=== PATIENT | female | born 1975 | race Caucasian/White ===

== ENCOUNTER 2020-01-13 22:53 | Inpatient (IN) | payer BC, OTHER ==
[~2020-01-13] VITALS: Ht 160 cm; Wt 129.0 kg
[2020-01-13] MEDS ORDERED: ondansetron/PF 4mg/2ml inj IV ONE (23:25)
[2020-01-13] MEDS ORDERED: morphine 10mg/ml inj. IV ONE (23:25)
[2020-01-13] MEDS ORDERED: iohexol 300mg/ml 100ml inj. ONE (23:32)
[2020-01-13 23:54] LABS: BASOPHILS # (AUTO) 0.1 X10'3 (0-0.2); BASOPHILS % (AUTO) 0.9 % (0-1); EOSINOPHILS # (AUTO) 0.2 X10'3 (0-0.9); EOSINOPHILS % (AUTO) 1.3 % (0-6); HEMATOCRIT 30.1 % (35.0-45.0); HEMOGLOBIN 9.6 g/dl (12.0-16.0); LYMPHOCYTES # (AUTO) 2.4 X10'3 (1.1-4.8); LYMPHOCYTES % (AUTO) 17.5 % (21-51); MEAN CORPUSCULAR HEMOGLOBIN 24.3 PG (27.0-31.0); MEAN CORPUSCULAR HGB CONC 31.7 g/dL (33.0-36.5); MEAN CORPUSCULAR VOLUME 76.4 FL (78-98); MEAN PLATELET VOLUME 8.3 FL (7.4-10.4); MONOCYTES # (AUTO) 0.5 X10'3 (0-0.9); MONOCYTES % (AUTO) 3.6 % (2-12); NEUTROPHILS # (AUTO) 10.6 X10'3 (1.8-7.7); NEUTROPHILS % (AUTO) 76.7 % (42-75); PLATELET COUNT 401 X10'3 (140-440); RED BLOOD COUNT 3.94 X10'6 (4.20-5.60); RED CELL DISTRIBUTION WIDTH 16.1 % (11.5-14.5); WHITE BLOOD COUNT 13.9 X10'3 (4.5-11.0)
[2020-01-14] VITALS (11 sets, daily range): BP systolic 106–137; BP diastolic 40–70
[2020-01-14 00:13] LABS: HCG SERUM QL NEGATIVE
[2020-01-14 00:57] LABS: CLARITY,URINE CLEAR (Clear); COLOR,URINE YELLOW (Yellow); GLUCOSE, URINE NEGATIVE (Neg); KETONES,URINE NEGATIVE (Neg); LEUKOCYTE ESTERASE ,URINE SMALL (Neg); NITRITES, URINE NEGATIVE (Neg); OCCULT BLOOD,URINE NEGATIVE (Neg); PROTEIN,URINE NEGATIVE (Neg); UROBILINOGEN,URINE 0.2 E.U/dL (0.2-1.0)
[2020-01-14 01:00] LABS: ANION GAP 8 (8-16); BILIRUBIN,TOTAL 0.2 MG/DL (0.1-1.0); BLOOD UREA NITROGEN 16 MG/DL (7-18); BUN/CREATININE RATIO 16.8 (6.6-38.0); CALCIUM 8.9 MG/DL (8.5-10.1); CHLORIDE 103 MMOL/L (99-107); CREATININE 0.95 MG/DL (0.40-0.90); GLUCOSE 127 MG/DL (70-104); POTASSIUM 3.9 MMOL/L (3.5-5.1); SODIUM 141 MMOL/L (135-145); TOTAL CARBON DIOXIDE 30.1 MMOL/L (24-32); TOTAL PROTEIN 7.5 G/DL (6.4-8.2); TROPONIN I < 0.04 NG/ML (0.0-0.05); eGFR 63 ML/MIN
[2020-01-14 01:01] LABS: ALANINE AMINOTRANSFERASE 16 U/L (12-78); ALBUMIN/GLOBULIN RATIO 0.7 (1.1-1.5); ALKALINE PHOSPHATASE 94 IU/L (46-116); ASPARTATE AMINO TRANSFERASE 10 U/L (10-37); LIPASE 84 U/L (73-393)
[2020-01-14 01:01] LABS: UA COLLECTION TYPE CLN CATCH MIDSTREAM
[2020-01-14 01:02] LABS: BACTERIA,URINE FEW /HPF (Neg); RBC,URINE NONE SEEN /HPF (0-2); SQUAMOUS EPITHELIAL CELL,UR FEW /LPF (FEW); WBC CLUMPS,URINE FEW /HPF (NEGATIVE)
[2020-01-14] MEDS ORDERED: metroNIDAZOLE-Flagyl 500mg/NS 100 ML IV STA (01:26)
[2020-01-14] MEDS ORDERED: CefTRIAXone/D5W-Rocephin 1gm 50 ML IV ONE (01:30)
[2020-01-14] MEDS ORDERED: GABA600T13 PO (01:56)
[2020-01-14] MEDS ORDERED: CYCL-1 PO (01:56)
[2020-01-14] MEDS ORDERED: TRAM50TA2 PO (01:56)
[2020-01-14] MEDS ORDERED: DULO60CA45 PO (01:57)
[2020-01-14] MEDS ORDERED: PANT20TA2 PO (01:57)
--- NOTE | 2020-01-14 02:03 | NUR ---
RELIEIVING PRIMARY RN- WILL MONITOR PT STATUS.
--- NOTE | 2020-01-14 02:09 | NUR ---
PER DR. MEADOWS, NO ORDERS FOR CULTURES WILL BE PLACED- OK TO ADMINISTER ANTIBIOTICS
[2020-01-14] MEDS ORDERED: acetaminophen 325mg tablet PO PRN (02:20)
[2020-01-14] MEDS ORDERED: ondansetron/PF 4mg/2ml inj IV PRN ×2 (02:20→17:05)
[2020-01-14] MEDS: morphine 2 MG/ML inj. syringe IV PRN ×3 (02:52→13:53)
[2020-01-14] MEDS: normal saline 1000ml 1,000 ML IV SCH ×3 (02:53→23:44)
--- NOTE | 2020-01-14 03:36 | NUR ---
Patient in room ED 13. I have received report from PHAN Todd and had the opportunity to ask questions and assume patient care.
--- NOTE | 2020-01-14 06:30 | NUR ---
Patient in room ORTHO 4024. I have received report from Rimma De León RN and had the opportunity to ask questions and assume patient care.
--- NOTE | 2020-01-14 06:40 | NUR ---
Problems reprioritized. Patient report given, questions answered & plan of care reviewed with PHAN Garcia.
[2020-01-14] MEDS: pantoprazole 40mg Tablet.DR PO SCH (07:29)
[2020-01-14] MEDS: CefTRIAXone/D5W-Rocephin 1gm 50 ML IV SCH (07:29)
[2020-01-14] MEDS: duloxetine 30mg CAPSULE.DR PO SCH (07:29)
[2020-01-14] MEDS: gabapentin 300mg capsule PO SCH ×3 (07:29→20:57)
[2020-01-14] MEDS ORDERED: ringers solution, lacted 1,000 ML IV ONE (16:00)
--- NOTE | 2020-01-14 16:05 | NUR ---
Report given to OR/CALENDER INSPECTORMariah CHISHOLM
[2020-01-14] MEDS ORDERED: BUPIVAcaine/PF 2.5 mg/ml (0.25%) 30ml vial ONE (16:37)
[2020-01-14] MEDS ORDERED: famotidine/PF 10 mg/ml inj IV ONE ×2 (17:04→17:06)
[2020-01-14] MEDS ORDERED: hydrALAZINE 20mg/ml inj. IV PRN (17:05)
[2020-01-14] MEDS ORDERED: HYDROmorphone inj. 0.5 MG/0.5 ML DISP.SYRIN IV PRN (17:05)
[2020-01-14] MEDS ORDERED: proCHLORperazine 10 MG/2 ml inj IV PRN (17:05)
[2020-01-14] MEDS ORDERED: meperidine/PF 25mg/ml syringe IV PRN (17:05)
[2020-01-14] MEDS ORDERED: acetaminophen 1,000mg/100ml IV 100 ML IV PRN (17:05)
[2020-01-14] MEDS ORDERED: morphine 2 MG/ML inj. syringe IV PRN (17:05)
[2020-01-14] MEDS ORDERED: ringers solution, lacted 1,000 ML IV SCH (17:05)
[2020-01-14] MEDS ORDERED: labetalol 20mg/4ml (5mg/ml) syringe IV PRN (17:05)
[2020-01-14] MEDS ORDERED: fentaNYL /PF 50mcg/ml 5ml ampule ONE (17:06)
[2020-01-14] MEDS ORDERED: LIDOcaine 2% 5ml jelly ONE (17:08)
[2020-01-14] MEDS ORDERED: ondansetron/PF 4mg/2ml inj ONE (17:20)
[2020-01-14] MEDS ORDERED: LIDOcaine 2% (20mg/ml) 5ml vial ONE (17:20)
[2020-01-14] MEDS ORDERED: dexamethasone sod phosphate 4mg/ml inj. ONE (17:20)
[2020-01-14] MEDS ORDERED: rocuronium 10mg/ml inj IV ONE (17:20)
[2020-01-14] MEDS ORDERED: ceFOXitin 1000 MG inj ONE ×2 (17:20)
[2020-01-14] MEDS ORDERED: propofol inj 20 ML IV ONE (17:20)
[2020-01-14] MEDS ORDERED: neostigmine methylsulfate 1 MG/ML 10ml vial ONE (18:06)
[2020-01-14] MEDS ORDERED: glycopyrrolate 0.2mg/ml inj ONE (18:06)
[2020-01-14] MEDS ORDERED: morphine 4 MG/ML inj SYRINge ONE (18:14)
--- NOTE | 2020-01-14 18:20 | NUR ---
Problems reprioritized. Patient report given, questions answered & plan of care reviewed with PHAN Lr.
--- NOTE | 2020-01-14 18:29 | NUR ---
Received from OR via , accompanied by Anesthesiologist DR FONSECA and report given by Anesthesiolgist. PT IS AWAKE, MOVING EXT X 4, 10/10 ABD PAIN, DEMEROL GIVEN, VSS, PIV RIGHT WRIST 20G PATENT WITH LR 100ML/HR, SCD'S, WOUND VAC TURNED ON, 4 BA'S ON ABD CD.
[2020-01-14] MEDS: HYDROmorphone inj. 0.5 MG/0.5 ML DISP.SYRIN IV PRN ×2 (18:38→18:48)
[2020-01-14] MEDS: morphine 4 MG/ML inj SYRINge IV PRN ×2 (18:59→19:28)
--- NOTE | 2020-01-14 19:16 | NUR ---
Report called to receiving nurse. Transferred via bed Belongings . Special Issues communicated to receiving nurse artur rizzo. PAIN IS FINALLY MANAGED WITH IV PAIN MEDS AND A SINGLE DOSE OF COMPAZINE, BA'S ON ABD CD, SCD'S, PIV PATENT. PT MERCY FLUIDS. PT MEETS DISCHARGE CRITERIA.
[2020-01-14] MEDS ORDERED: cyclobenzaprine 10mg tablet PO SCH (21:00)
--- NOTE | 2020-01-14 21:46 | NUR ---
I called the wound vac placement into [facility] that was placed on patient since we had to taker her home wound vac off her per policy, I was given a reference number of [id number].
[2020-01-15] VITALS: BP 119/58
[2020-01-15] MEDS: morphine 2 MG/ML inj. syringe IV PRN ×2 (01:18→08:42)
[2020-01-15 05:46] LABS: BASOPHILS % (AUTO) 0.4 % (0-1); EOSINOPHILS # (AUTO) 0.1 X10'3 (0-0.9); EOSINOPHILS % (AUTO) 1.4 % (0-6); HEMATOCRIT 29.1 % (35.0-45.0); HEMOGLOBIN 9.1 g/dl (12.0-16.0); LYMPHOCYTES # (AUTO) 1.6 X10'3 (1.1-4.8); LYMPHOCYTES % (AUTO) 15.8 % (21-51); MEAN CORPUSCULAR HEMOGLOBIN 24.2 PG (27.0-31.0); MEAN CORPUSCULAR HGB CONC 31.3 g/dL (33.0-36.5); MEAN CORPUSCULAR VOLUME 77.3 FL (78-98); MEAN PLATELET VOLUME 8.7 FL (7.4-10.4); MONOCYTES # (AUTO) 0.4 X10'3 (0-0.9); MONOCYTES % (AUTO) 4.3 % (2-12); NEUTROPHILS # (AUTO) 7.7 X10'3 (1.8-7.7); NEUTROPHILS % (AUTO) 78.1 % (42-75); PLATELET COUNT 371 X10'3 (140-440); RED BLOOD COUNT 3.76 X10'6 (4.20-5.60); RED CELL DISTRIBUTION WIDTH 16.2 % (11.5-14.5); WHITE BLOOD COUNT 9.8 X10'3 (4.5-11.0)
--- NOTE | 2020-01-15 06:20 | NUR ---
Patient in room ORTHO 4024. I have received report from KARON CHISHOLM and had the opportunity to ask questions and assume patient care.
--- NOTE | 2020-01-15 06:32 | NUR ---
Problems reprioritized. Patient report given, questions answered & plan of care reviewed with Ruth CHISHOLM. Addendum: 01/15/20 at 0632 by Adeline Russo RN Amended: Links added.
[2020-01-15 06:37] LABS: CHLORIDE 105 MMOL/L (99-107); POTASSIUM 3.8 MMOL/L (3.5-5.1); SODIUM 142 MMOL/L (135-145)
[2020-01-15 07:22] LABS: ALANINE AMINOTRANSFERASE 26 U/L (12-78); ALBUMIN 2.9 G/DL (3.4-5.0); ALBUMIN/GLOBULIN RATIO 0.7 (1.1-1.5); ALKALINE PHOSPHATASE 81 IU/L (46-116); ANION GAP 10 (8-16); ASPARTATE AMINO TRANSFERASE 32 U/L (10-37); BILIRUBIN,TOTAL 0.3 MG/DL (0.1-1.0); BLOOD UREA NITROGEN 10 MG/DL (7-18); BUN/CREATININE RATIO 11.6 (6.6-38.0); CALCIUM 8.2 MG/DL (8.5-10.1); CREATININE 0.86 MG/DL (0.40-0.90); GLUCOSE 96 MG/DL (70-104); TOTAL CARBON DIOXIDE 27.4 MMOL/L (24-32); TOTAL PROTEIN 7.1 G/DL (6.4-8.2); eGFR 71 ML/MIN
[2020-01-15] MEDS: pantoprazole 40mg Tablet.DR PO SCH (08:23)
[2020-01-15] MEDS: duloxetine 30mg CAPSULE.DR PO SCH (08:23)
[2020-01-15] MEDS: gabapentin 300mg capsule PO SCH ×2 (08:24→14:42)
[2020-01-15] MEDS: CefTRIAXone/D5W-Rocephin 1gm 50 ML IV SCH (08:28)
[2020-01-15] MEDS: normal saline 1000ml 1,000 ML IV SCH (08:32)
--- NOTE | 2020-01-15 10:14 | NUR ---
PAGED TO ROM TO ASK FOR A DIET ORDER FOR THIS PT. SHE DOES NOT HAVE ONE.
[2020-01-15 11:09] VITALS: BP 113/54
--- NOTE | 2020-01-15 11:57 | NUR ---
PAGED DR CUETO AGAIN. SHE HAS NOT RESPONDED TO MY MESSAGE REGARDING THIS PT.
--- NOTE | 2020-01-15 12:00 | NUR ---
DC'D SCD'S PT IS AMBULATING WELL
[2020-01-15] MEDS ORDERED: traMADol 50MG tablet PO PRN (13:00)
[2020-01-15] MEDS ORDERED: lactobacillus rhamnosus 10,000 MMU CELLS/CAPSULE PO SCH (20:00)
== END 2020-01-15 18:00 | disposition home or self-care (01) | DRG 418 ==
LOC: ER 22:53 → ED HOLD 01-14 02:18 → ORTHO 4S 01-14 03:42 → PACU 01-14 16:43 → ORTHO 4S 01-14 19:35
PROVIDERS: ADMIT Internal Medicine; ATTEND Internal Medicine
PROC: BW211ZZ Computerized Tomography (CT Scan) of Abdomen and Pelvis using Low Osmolar Contrast (ICD-10-PCS; 2020-01-14)
PROC: 0FT44ZZ Resection of Gallbladder, Percutaneous Endoscopic Approach (ICD-10-PCS; principal; 2020-01-14 17:01)
DX: K80.00 Calculus of gallbladder with acute cholecystitis without obstruction (principal); Z68.43 Body mass index [BMI] 50.0-59.9, adult; S70.11XA Contusion of right thigh, initial encounter; D50.9 Iron deficiency anemia, unspecified; X58.XXXA Exposure to other specified factors, initial encounter; E66.9 Obesity, unspecified; Z88.1 Allergy status to other antibiotic agents; Z79.899 Other long term (current) drug therapy; Y93.89 Activity, other specified; Y92.89 Other specified places as the place of occurrence of the external cause; Y99.8 Other external cause status
CPT/HCPCS: 36415; 71045; 74177; 80053; 81001; 82948; 83690; 84484; 84703; 85025; 85610; 87081; 87088; 99285; A4215; A4618; A7000; G0378; J0694; J0696; J0780; J1100; J1170; J2001; J2175; J2270; J2405; J2704; J2710; J3010; J3490; J7030; J7120; Q9967